=== PATIENT | female | born 1945 | race Two or more races ===

== ENCOUNTER 2019-08-07 18:37 | Emergency (ER) | payer MEDICARE, BC ==
[~2019-08-07] VITALS: Ht 149.9 cm; Wt 68.9 kg
--- NOTE | 2019-08-07 19:05 | NUR ---
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 L EYE SWELLING NOTED. PT HAS ALTERED THOUGHT PROCESS, NO ACUTE DISTRESS NOTED. AWAITING FOR MD PANIAGUA. CONNECTED TO THE MONITOR AND POX
--- NOTE | 2019-08-07 19:08 | NUR ---
BLOOD DRAWN AND COLLECTED TO LAB
--- NOTE | 2019-08-07 19:10 | NUR ---
URINE COLLCTED AND SENT TO LAB
[2019-08-07] MEDS ORDERED: NAPH15DR68 EACHEYE (19:14)
[2019-08-07] MEDS ORDERED: ACET-2605 PO (19:14)
[2019-08-07] MEDS ORDERED: LEVO125T8 PO (19:14)
[2019-08-07] MEDS ORDERED: CETI-108 PO (19:14)
[2019-08-07] MEDS ORDERED: CHOL200076 PO (19:14)
[2019-08-07 19:28] LABS: BASOPHILS % (AUTO) 0.3 % (0.0-2.0); HEMATOCRIT 41 % (33-45); HEMOGLOBIN 13.2 g/dL (11.5-14.8); LYMPHOCYTES # (AUTO) 0.8 /CMM (0.8-4.8); LYMPHOCYTES % (AUTO) 6.2 % (20.0-44.0); MEAN CORPUSCULAR HGB CONC 32 g/dl (31.0-36.0); MEAN CORPUSCULAR VOLUME 101 fL (82-100); MONOCYTES # (AUTO) 0.8 /CMM (0.1-1.30); MONOCYTES % (AUTO) 5.7 % (2.0-12.0); NEUTROPHILS # (AUTO) 11.7 /CMM (1.8-8.9); NEUTROPHILS % (AUTO) 87.8 % (43.0-81.0); PLATELET COUNT (AUTO) 135 /CMM (150-450); RED BLOOD CELL COUNT(AUTO) 4.08 MIL/uL (4.0-5.2); WHITE BLOOD COUNT (AUTO) 13.3 K/uL (4.3-11.0)
[2019-08-07 19:39] LABS: CALCIUM, SERUM 8.5 mg/dL (8.5-10.1); CARBON DIOXIDE 22 mmol/L (21-32); CHLORIDE 100 mmol/L (98-107); CREATININE 0.8 mg/dL (0.6-1.3); GLUCOSE 112 mg/dL (74-106); POTASSIUM 3.9 mmol/L (3.5-5.1); SODIUM SERUM 134 mmol/L (136-145); UREA NITROGEN, BLOOD 13 mg/dL (7-18)
[2019-08-07 19:45] LABS: ALANINE AMINOTRANSFERASE 43 U/L (12-78); ALBUMIN 3.2 g/dL (3.4-5.0); ALKALINE PHOSPHATASE 159 U/L (46-116); ASPARTATE AMINOTRANSFERASE 77 U/L (15-37); BILIRUBIN,DIRECT 0.2 mg/dL (0.0-0.2); BILIRUBIN,TOTAL 0.8 mg/dL (0.2-1.0); TOTAL PROTEIN, SERUM 7.7 g/dL (6.4-8.2)
--- NOTE | 2019-08-07 19:45 | NUR ---
PT TAKEN TO CT
[2019-08-07 19:48] LABS: APPEARANCE,URINE CLEAR (CLEAR); BILIRUBIN,URINE SMALL (NEGATIVE); BLOOD, URINE Negative Ery/uL (NEGATIVE); COLOR,URINE Yellow (YELLOW); KETONES,URINE >=160 (NEGATIVE); LEUKOCYTE ESTERASE ,URINE Negative (NEGATIVE); NITRITE, URINE Negative (NEGATIVE); PH,URINE 6.5 (5.0-8.0); PROTEIN,URINE 100 mg/dl (NEGATIVE); RBC,URINE 0-2 /HPF (0-2); UGLUCOSE Negative (NEGATIVE)
[2019-08-07 19:49] LABS: BACTERIA,URINE Few /HPF (None Seen); MUCUS,URINE Rare /LPF (None Seen); SQUAMOUS EPITHELIAL CELL,UR Few /HPF (None Seen); WBC,URINE 0-2 /HPF (0-3)
--- NOTE | 2019-08-07 19:58 | NUR ---
PT BACK FROM CT
[2019-08-07] MEDS ORDERED: VANCOMYCIN 1 GM VIAL ONE (21:00)
[2019-08-07] MEDS ORDERED: CEFEPIME 1 GM in IV D5W 50 ML IV ONE (21:00)
[2019-08-07] MEDS ORDERED: VANCOMYCIN 1 GM in IV D5W 250 ML IV ONE (21:00)
[2019-08-07] MEDS ORDERED: IV NS 0.9% 1,000 ML BAG IV ONE (21:00)
[2019-08-07] MEDS ORDERED: CEFEPIME 1 GM VIAL ONE (21:00)
--- NOTE | 2019-08-07 21:01 | NUR ---
CALLED [facility], PAGED MYRON
[2019-08-07] MEDS ORDERED: IOHEXOL-300 100 ML VIAL IV ONE (21:17)
[2019-08-07] MEDS ORDERED: CT SWABBABLE VALVE TRANS SET 1 EA INFUS.SET MC ONE (21:17)
[2019-08-07] MEDS ORDERED: IV NS 0.9% 250 ML IV ONE (21:17)
--- NOTE | 2019-08-07 21:37 | NUR ---
PT BACK FROM CT
--- NOTE | 2019-08-07 22:19 | NUR ---
PAGED DR. ROCA ([facility]) FOR CONSULT
--- NOTE | 2019-08-07 22:29 | NUR ---
ATTEMPTED TO CONTACT DR. OWEN ([facility]) FOR CONSULT, ANSWERING SERVICES DIRECTED TO DR. ROCA
--- NOTE | 2019-08-07 22:34 | NUR ---
CALLED OFFICE OF DR ROCA, W[employer] SERVICE TECHNICIAN STATES WORKING ON PAGE NOW
--- NOTE | 2019-08-07 22:59 | NUR ---
CALLED [facility] US FOR POSSIBLE TRANSFER, BEDS ONLY AVAILABLE FOR PEDS AND OB
--- NOTE | 2019-08-07 23:03 | NUR ---
CALLED [facility] FOR TRANSFER, NO BEDS AVAILABLE AT THIS TIME
--- NOTE | 2019-08-07 23:09 | NUR ---
FAXED CLINICALS AND FACESHEET TO [facility] PER [facility]
--- NOTE | 2019-08-07 23:13 | NUR ---
CALLED [facility] FOR POSSIBLE TRANSFER, NO [facility]
--- NOTE | 2019-08-07 23:21 | NUR ---
CALLED [facility] FOR POSSIBLE TRANSFER, ADVISED TO CALL [facility]- NO BEDS AVAILABLE AT THIS TIME
--- NOTE | 2019-08-07 23:32 | NUR ---
FAXED CLINICALS TO [facility]
--- NOTE | 2019-08-07 23:54 | NUR ---
INFORMED PATIENT AND FAMILY OF PENDING TRANSFER INFORMATION, NO BEDS AVAILABLE AT THIS TIME. FAMILY VERBALIZED UNDERSTANDING.
--- NOTE | 2019-08-07 23:58 | NUR ---
TREASURE (DAUGHTER) CONTACT INFORMATION: [phone] OR CHRIS (SON IN LAW) CONTACT INFORMATION: [phone]
--- NOTE | 2019-08-08 01:37 | NUR ---
Marin ambriz in ED - 08/08/19 at 0149 by GEN PT ACCEPTED AT [facility] SHAYLA BENJAMIN MD: DR. NATHANIEL JOSEPH NUMBER FOR REPORT: [phone] [facility] ETA: [id number]
--- NOTE | 2019-08-08 01:37 | NUR ---
PT ACCEPTED AT [facility] SHAYLA BENJAMIN MD: DR. NATHANIEL JOSEPH NUMBER FOR REPORT: [phone] [facility] ETA 2-3HOURS TRIP #[id number]
--- NOTE | 2019-08-08 01:43 | NUR ---
CALLED [facility] FOR TRANSPORTATION ETA 09
--- NOTE | 2019-08-08 01:52 | NUR ---
ATTEMPTED TO CONTACT PT'S FAMILY TO INFORM OF TRANSFER. NO ANSWER, NO VOICEMAIL SET UP.
--- NOTE | 2019-08-08 02:17 | NUR ---
CALLED [facility] ER TO GIVE REPORT. NURSE IS NOT AVAILABLE. PER UTILITY DIVISION PROJECT MANAGER, NURSE WILL CALL BACK
--- NOTE | 2019-08-08 02:31 | NUR ---
REPORT GIVEN TO MAGI FARRAR FROM [facility] FOR [facility]
[2019-08-08] MEDS ORDERED: ACETAMINOPHEN 650 MG/SUPP.RECT RC ONE ×2 (02:33→03:30)
--- NOTE | 2019-08-08 02:34 | NUR ---
PT FEBRILE, AWARE
--- NOTE | 2019-08-08 02:51 | NUR ---
Marin ambriz in [facility] - 08/08/19 at 0253 by GEN PER [facility], UNABLE TO SET UP TRANSPORTATION WITH AUTHORIZATION CODE
--- NOTE | 2019-08-08 04:15 | NUR ---
NOTED TACHYCARDIA, PER VERBAL MD ORDER WILL ADMINISTER 500ML NS IV X1 NOW
[2019-08-08 04:28] VITALS: BP 112/53
[2019-08-08] MEDS ORDERED: IV NS 0.9% 500 ML BAG IV ONE (04:30)
--- NOTE | 2019-08-08 04:36 | NUR ---
REPORT GIVEN TO EMS, PT STABLE FOR TRANSFER.
--- NOTE | 2019-08-08 04:37 | NUR ---
REPORT GIVEN TO SANDR[facility] 230 FOR TRANSPORTATION [facility]
--- NOTE | 2019-08-08 04:42 | NUR ---
PT TRANSFERRED IN STABLE CONDITION TO [facility]
== END 2019-08-08 04:43 | disposition short-term general hospital (02) ==
LOC: ER 18:38
DX: A41.9 Sepsis, unspecified organism (principal); H05.013 Cellulitis of bilateral orbits; R41.0 Disorientation, unspecified; R00.0 Tachycardia, unspecified; Z85.3 Personal history of malignant neoplasm of breast; Z79.899 Other long term (current) drug therapy
CPT/HCPCS: 36415; 70450; 70481; 71045; 80048; 80076; 81001; 83605; 84145; 84484; 85025; 85730; 87040 ×2; 87086; 93005 ×4; 96365; 96367; 99291; J0692 ×2; J3370; J7030; J7050; J7060 ×2; Q9967; 81000-TC